=== PATIENT | female | born 1960 | race Caucasian/White ===

== ENCOUNTER → 2017-09-23 | Outpatient (CLI) | payer OTHER ==
[~2017-09-23] MED LIST: NO HOME MEDICATIONS
== END ==
LOC: MC.RAD 07:38
DX: Z12.31 Encounter for screening mammogram for malignant neoplasm of breast (principal)

== ENCOUNTER → 2019-03-20 | Outpatient (CLI) | payer OTHER | LOC: MC.RAD 02-14 08:30 | DX: Z12.31 Encounter for screening mammogram for malignant neoplasm of breast (principal) ==